=== PATIENT | male | born 1955 | race Caucasian/White ===

== ENCOUNTER → 2023-10-08 | Outpatient (CLI) | payer MEDICARE ==
--- NOTE | 2023-10-08 09:38 | MR ---
EXAMINATION TYPE: MR knee LT wo con DATE OF EXAM: 10/08/2023 COMPARISON: Outside radiograph 10/06/2023 HISTORY: 68-year-old male C1 8.8 Left knee pain. TECHNIQUE: Multiplanar, multisequence imaging of the left knee is performed without IV contrast. FINDINGS: ACL and PCL are intact. There is mild edema on either side of the intact MCL. Intrasubstance change in the femoral attachment of the LCL proper along with mass effect onto the mid portion from underlying complex multidirectional tear of the lateral meniscus and associated paramen iscal cysts measuring up to 2.7 cm x 1.5 cm craniocaudal. Remainder of the LCL complex appears intact. Small oblique undersurface tear at the junction of posterior horn and body of the medial meniscus. Mild superficial cartilage loss along the mid weightbearing aspect of medial and lateral femoral cond yles. More moderate irregular cartilage loss along the mid and medial trochlear facet. Minimal superficial irregularity of lateral patellar articular cartilage. Extensor mechanism is intact. There is a [id number] knee joint effusion and trace Cullen's cys t. Mild anterior subcutaneous soft tissue swelling. Normal popliteal artery anatomy and muscle bulk. No suspicious bone marrow replacement. IMPRESSION: 1. Complex multidirectional tearing extending throughout the entire lateral meniscus. Large paramenis tammy cyst laterally measuring up to 2.7 x 1.5 cm pushing on to the LCL proper. 2. Additional intrasubstance tear at the femoral attachment of the LCL proper. 3. Grade 1 MCL sprain. 4. Small oblique undersurface tear at the junction of the posterior horn and body of the medial menis cus. 5. Slight degenerative cartilage irregularity in the 3 compartments of the knee. More moderate irregu lar cartilage loss mid and medial trochlear cartilage.
== END | disposition home or self-care (01) ==
LOC: RADMRIMAIN 06:38
PROVIDERS: ATTEND Orthopaedic Surgery
DX: S83.412A Sprain of medial collateral ligament of left knee, initial encounter (principal); S83.242A Other tear of medial meniscus, current injury, left knee, initial encounter; M24.19 Other articular cartilage disorders, other specified site; S83.282A Other tear of lateral meniscus, current injury, left knee, initial encounter; M17.12 Unilateral primary osteoarthritis, left knee

== ENCOUNTER → 2023-10-18 | Outpatient (CLI) | payer MEDICARE ==
[2023-10-18 15:02] LABS: Basophils # (A) 0.05 X 10*3/uL (0.00-0.10); Basophils % (A) 0.5 %; Eosinophils % (A) 2.2 %; HCT 48.4 % (39.6-50.0); HGB 16.4 g/dL (13.0-17.0); Lymphocytes % (A) 20.7 %; MCHC 33.9 g/dL (32.0-37.0); MCV 88.5 FL (80.0-97.0); Mean Platelet Volume 9.7 FL (9.5-12.2); Monocytes # (A) 0.73 X 10*3/uL (0.20-1.00); Monocytes % (A) 7.9 %; NRBC Per 100 WBC 0 X 10*3/uL (0.00-0.01); Neutrophils # (A) 6.24 X 10*3/uL (1.80-7.70); Neutrophils % (A) 67.8 %; Platelet Count 280 X 10*3/uL (140-440); RBC 5.47 X 10*6/uL (4.40-5.60); RDW 12.1 % (11.5-14.5)
[2023-10-18 15:05] LABS: Anion Gap 11.1 mmol/L (4.00-12.00); Carbon Dioxide 24.9 mmol/L (21.6-31.8); Potassium 4.4 mmol/L (3.5-5.5)
== END | disposition home or self-care (01) ==
LOC: LABWHC1 07:56
PROVIDERS: ATTEND Orthopaedic Surgery
DX: Z01.818 Encounter for other preprocedural examination (principal); M23.92 Unspecified internal derangement of left knee; R94.31 Abnormal electrocardiogram [ECG] [EKG]
CPT/HCPCS: 36415; 80051; 85025; 93005

== ENCOUNTER 2023-10-28 08:43 | Day surgery (SDC) | payer MEDICARE ==
--- NOTE | 2023-10-27 21:04 | HP ---
HISTORY AND PHYSICAL DATE OF SURGERY: 10/28/2023. HISTORY OF PRESENT ILLNESS: Ramon Tracy is a 68-year-old gentleman, who was seen with progressive left knee pain. We discussed options regarding treatment. He elected to proceed with left knee arthroscopy. Consent was obtained. PAST MEDICAL HISTORY: Hypertension, gout. PAST SURGICAL HISTORY: Noncontributory. DAILY MEDICATIONS: Advil. ALLERGIES: None. SOCIAL HISTORY: Denies tobacco use. PHYSICAL EVALUATION OF THE LEFT KNEE: His range of motion is 0 to 130 degrees. Mild effusion. Tenderness along the medial and lateral joint lines. Positive medial Ravindra's. Positive lateral Ravindra's. Ligaments stable. Hip rotation without pain. Distal neurovascular exam is intact. IMAGING STUDIES: Left knee radiographs revealed mild osteoarthritis. Left knee MRI revealed medial and lateral meniscal tears. IMPRESSION: 1. Internal derangement of left knee with medial and lateral meniscal tears. 2. Hypertension. PLAN: Left knee arthroscopy with partial medial/lateral meniscectomy and debridement. MMODL / IJN: [id number] /
[~2023-10-28 08:43] MED LIST: DEXAMETHASONE SOD PHOSPHATE 4 MG/ML 1 ML VIAL IV ONE; HYDROmorphone 0.5 MG/0.5 ML SYRINGE IVP PRN; LACTATED RINGERS 1,000 ML IV SCH; LIDOCAINE 1% (10MG/ML) FOR IV START INTRADERMA PRN; ONDANSETRON 4 MG/2 ML VIAL IVP ONE; droPERidol 5 MG/2 ML VIAL IVP ONE
[2023-10-28] MEDS ORDERED: BUPIVACAINE (PF) 0.25% 30 ML VIAL SQ ONE ×2 (10:07→10:59)
[2023-10-28] MEDS ORDERED: fentaNYL (PF) 50 MCG/ML 2 ML AMP ONE (10:13)
[2023-10-28] MEDS ORDERED: PROPOFOL 10 MG/ML 20 ML VIAL IV ONE (10:13)
[2023-10-28] MEDS ORDERED: KETOROLAC 15 MG/ML 1 ML VIAL ONE (10:13)
[2023-10-28] MEDS ORDERED: LIDOCAINE 1% INJ 10MG/ML (20 ML MDV) ONE (10:13)
[2023-10-28] MEDS ORDERED: MIDAZOLAM 2 MG/2 ML VIAL ONE (10:13)
--- NOTE | 2023-10-28 11:14 | P.OP ---
Date of Procedure: 10/28/23 Preoperative Diagnosis: Internal derangement left knee Postoperative Diagnosis: 1. Tear medial and lateral meniscus left knee 2. Reactive synovitis medial, lateral and suprapatellar compartments left knee Procedure(s) Performed: 1. Arthroscopic partial medial and lateral meniscectomy left knee 2. Arthroscopic partial synovectomy medial, lateral and suprapatellar compartments left knee Anesthesia: GETA, local Surgeon: Irineo Ortiz Estimated Blood Loss (ml): 8 Pathology: none sent Condition: stable Disposition: PACU Indications for Procedure: 68-year-old gentleman seen with progressive left knee pain. After treatment options were discussed, he elected to proceed with arthroscopy. Operative Findings: See description of procedure Description of Procedure: Patient was taken to the operative suite. Patient underwent a general anesthetic by the department of anesthesia. Patient was given preoperative antibiotics. The left lower extremity was placed in a well-padded arthroscopic leg hunt. The left leg was prepped and draped in the normal sterile orthopedic fashion. A lateral parapatellar and suprapatellar incision was made. Trochars were inserted. Arthroscopy was initiated. Suprapatellar pouch rev ealed diffuse thick reactive synovitis. The patellofemoral joint appeared to articulate congruently. There was grade I/II chondromalacia of the patella without tears. The scope was guided into the medial gutter. No loose bodies or plica were identified. The scope was then guided into the medial compartment. A medial parapatellar incision was made. Trocar inserted followed by probe. There was a complex tear posterior horn medial meniscus. There were grade I/II chondromalacia changes medial compartment without tears. There was reactive synovitis anteriorly. I performed a partial medial meniscectomy getting down to stable meniscal tissue. I performed a partial synovectomy decompressing the reactive synovitis. The residual meniscus was stable. There was good decompression of the synovitis. Scope and probe were then guided into the intercondylar notch. Cruciates were identified, probed and found to be stable. The scope and probe were then guided into lateral compartment. There was a complex tear which was quite extensive involving the anterior horn, mid body and posterior horn the lateral meniscus. There were grade I chondromalacia changes lateral femoral condyle. There was thick reactive synovitis throughout the anterior aspect the lateral compartment. I now performed a partial lateral meniscectomy which was quite extensive. I performed a partial synovectomy decompressing the reactive synovitis. The partial lateral meniscectomy was essentially subtotal meniscectomy given the extensive tear. The very little residual meniscus that remained was stable. There was good decompression of the synovitis. The scope was in guided back into the suprapatellar compartment. I introduced a motorized shaver into the suprapatellar compartment. I debrided piecemeal fragments of meniscus I encountered. I performed a partial synovectomy. The shaver was now removed. There was good decompression of the synovitis. I took another look around the entire knee, no residual debris. Instruments were now removed from the joint. The joint was infiltrated with .25% Marcaine. Steri-Strips were applied to the portal sites. Sterile dressings were applied. The patient was placed into a LOVE hose. No tourniquet was utilized. The patient was awakened, transferred to a bed and taken to recovery stable satisfactory condition.
[2023-10-28 11:18] VITALS: TEMP 98
[2023-10-28 11:52] VITALS: RESP 16
[2023-10-28] MEDS: HYDROcodone/APAP 5-325MG 1 EACH TAB ONE ×2 (12:26→12:35)
[2023-10-28 13:02] VITALS: BP 164/93; PULSE 70
== END 2023-10-28 13:10 | disposition home or self-care (01) ==
LOC: OR 08:43
PROVIDERS: ATTEND Orthopaedic Surgery
DX: S83.282A Other tear of lateral meniscus, current injury, left knee, initial encounter (principal); M65.162 Other infective (teno)synovitis, left knee; I10 Essential (primary) hypertension; X58.XXXA Exposure to other specified factors, initial encounter
CPT/HCPCS: 29880; J2250; J1100; J0690; J2405; J2001; J3010; J1885; J2704; J0665

== ENCOUNTER 2024-06-20 21:38 | Emergency (ER) | payer MEDICARE ==
[2024-06-20 22:25] LABS: ALT 43 U/L (4-49); AST 34 U/L (17-59); African American GFR (CKD) >90 (>60 ml/min/1.73 sqM); Albumin 4.8 g/dL (3.5-5.0); Alkaline Phosphatase 94 U/L (38-126); Anion Gap 16 mmol/L; Blood Urea Nitrogen 17 mg/dL (9-20); Calcium 9.4 mg/dL (8.4-10.2); Carbon Dioxide 24 mmol/L (22-30); Chloride 96 mmol/L (98-107); Glucose 170 mg/dL (74-99); Non-African American GFR(CKD) >90 (>60 ml/min/1.73 sqM); Sodium 136 mmol/L (137-145); Total Bilirubin 1.1 mg/dL (0.2-1.3); Total Protein 7.6 g/dL (6.3-8.2)
[2024-06-20] MEDS: diphenhydrAMINE 50 MG/ML 1 ML VIAL IVP STA (22:33)
[2024-06-20] MEDS: SODIUM CHLORIDE 0.9% 2,000 ML IV ONE (22:33)
[2024-06-20] MEDS: PANTOPRAZOLE 40 MG/10 ML VIAL IVP STA (22:34)
[2024-06-20] MEDS: METOCLOPRAMIDE 5 MG/ML 2 ML VIAL IVP STA (22:34)
[2024-06-20 22:38] LABS: Basophils % (A) 0 %; Eosinophils # (A) 0.1 k/uL (0-0.7); Eosinophils % (A) 0 %; HCT 49.7 % (39.0-53.0); HGB 17.6 gm/dL (13.0-17.5); Lymphocytes # (A) 1.3 k/uL (1.0-4.8); Lymphocytes % (A) 11 %; MCHC 35.4 g/dL (31.0-37.0); MCV 87.7 fL (80.0-100.0); Mean Platelet Volume 7.5; Monocytes # (A) 0.5 k/uL (0-1.0); Monocytes % (A) 4 %; Neutrophils # (A) 10.6 k/uL (1.3-7.7); Neutrophils % (A) 84 %; Platelet Count 226 k/uL (150-450); RBC 5.67 m/uL (4.30-5.90); RDW 12.6 % (11.5-15.5); WBC 12.6 k/uL (3.8-10.6)
--- NOTE | 2024-06-20 22:53 | ED ---
General Adult HPI - General Chief complaint: Dizziness Stated complaint: Dizziness,Vomiting Time Seen by Provider: 06/20/24 21:56 Source: patient, RN notes reviewed Mode of arrival: wheelchair Limitations: no limitations - History of Present Illness Initial comments: 69-year-old male presents emergency department with chief complaint of lightheadedness. Patient states he took some caffeine supplement pill this morning states he took 2 tablets of it and this was the first time and shortly after he started having lightheadedness, near syncopal episodes, palpitations, dyspepsia. Patient states he has chronic GERD issues in which he takes Pepcid. Patient denies any chest pain denies any back pain denies any extremity weakness no headache he states symptoms are worse with movement. - Related Data Home Medications Medication Instructions Recorded Confirmed Losartan/Hydrochlorothiazide 1 tab PO DAILY 10/22/23 10/22/23 [Losartan-Hctz 100-25 mg Tab] Otc Zantac 1 tab PO DAILY PRN 10/22/23 10/22/23 Rosuvastatin Calcium 5 mg PO HS 10/22/23 10/22/23 Tamsulosin HCl [Flomax] 0.4 mg PO HS 10/22/23 10/22/23 Unk Tylenol 1 tab PO DIRECTED PRN 10/22/23 10/22/23 allopurinoL [Allopurinol] 100 mg PO DAILY 10/22/23 10/22/23 amLODIPine BESYLATE [Amlodipine 2.5 mg PO HS 10/22/23 10/22/23 Besylate] Previous Rx's Medication Instructions Recorded HYDROcodone/APAP 5-325MG [[place] 1 tab PO Q6HR PRN #12 tab 10/28/23 5-325] Allergies Allergy/AdvReac Type Severity Reaction Status Date / Time No Known Allergies Allergy Verified 06/20/24 21:40 Review of Systems ROS Statement: Those systems with pertinent positive or pertinent negative responses have been documented in the HPI. ROS Other: All systems not noted in ROS Statement are negative. Past Medical History Past Medical History: Hyperlipidemia, Hypertension History of Any Multi-Drug Resistant Organisms: None Reported Past Surgical History: Orthopedic Surgery Additional Past Surgical History / Comment(s): left knee Past Psychological History: No Psychological Hx Reported Smoking Status: Never smoker Past Alcohol Use History: Rare Past Drug Use History: None Reported General Exam Limitations: no limitations General appearance: alert, in no apparent distress Head exam: Present: atraumatic, normocephalic, normal inspection Eye exam: Present: normal appearance, PERRL, EOMI. Absent: scleral icterus, conjunctival injection, periorbital swelling ENT exam: Present: normal exam, normal oropharynx, mucous membranes moist Neck exam: Present: normal inspection, full ROM. Absent: tenderness, meningismus, lymphadenopathy Respiratory exam: Present: normal lung sounds bilaterally. Absent: respiratory distress, wheezes, rales, rhonchi, stridor Cardiovascular Exam: Present: normal rhythm, tachycardia, normal heart sounds. Absent: systolic murmur, diastolic murmur, rubs, gallop, clicks Extremities exam: Present: normal inspection, full ROM, normal capillary refill. Absent: tenderness, pedal edema, joint swelling, calf tenderness Neurological exam: Present: alert, oriented X3, CN II-XII intact, reflexes normal. Absent: motor sensory deficit Skin exam: Present: warm, dry, intact, normal color. Absent: rash Course Vital Signs 06/20/24 21:40 Temperature 98.0 F Pulse Rate 119 H Respiratory 24 Rate Blood Pressure 190/107 O2 Sat by Pulse 94 L Oximetry EKG Findings - EKG Comments: EKG Findings:: EKG performed at 21: 55 sinus rhythm rate of 96 MO 177 QRS 105 QT/QTc 373/427 - EKG Results: EKG: interpreted by JHONNY Medical Decision Making - Medical Decision Making Was pt. sent in by a medical professional or institution ([facility], LAB AID, urgent care, hospital, or fpc...) When possible be specific @ -No Did you speak to anyone other than the patient for history (EMS, parent, family, police, friend...)? What history was obtained from this source @ -No Did you review nursing and triage notes (agree or disagree)? Why? @ -I reviewed and agree with nursing and triage notes Were old charts reviewed (outside hosp., previous admission, EMS record, old E KG, old radiological studies, urgent care reports/EKG's, fpc records)? Report findings @ -No old charts were reviewed Differential Diagnosis (chest pain, altered mental status, abdominal pain women, abdominal pain men, vaginal bleeding, weakness, fever, dyspnea, syncope, headache, dizziness, GI bleed, back pain, seizure, CVA, palpatations, mental health, musculoskeletal)? @ -Medication reaction, differential Syncope: Valvular disease, hypertrophic cardiomyopathy, pulmonary embolism, tamponade, tachycardia, bradycardia, SD, hypovolemia, hemorrhage, dissection, anemia, intracranial hemorrhage, seizure, hypoglycemia, carbon monoxide poisoning, this is not meant to be an all-inclusive list. Differential Dizziness: Benign paroxysmal positional Vertigo, Meniere's disease, otitis media, acoustic neuroma, vertebrobasilar insufficiency, cerebellar stroke, encephalitis, hypovolemic, arrhythmia, coronary artery syndrome, anemia, this is not meant to be an all-inclusive list EKG interpreted by me (3pts min.). @ -As above X-rays interpreted by me (1pt min.). @ -None done CT interpreted by me (1pt min.). @ -None done U/S interpreted by me (1pt. min.). @ -None done What testing was considered but not performed or refused? (CT, X-rays, U/S, labs)? Why? @ -None What meds were considered but not given or refused? Why? @ -None Did you discuss the management of the patient with other professionals (professionals i.e. , PA, LAB AID, lab, RT, psych nurse, social work therapist, family court counsellor, teacher, custodial officer, casework supervisor)? Give summary @ -No Was smoking cessation discussed for >3mins.? @ -No Was critical care preformed (if so, how long)? @ -No Were there social determinants of health that impacted care today? How? (Homelessness, low income, unemployed, alcoholism, drug addiction, transpo rtation, low edu. Level, literacy, decrease access to med. care, [facility] [facility], rehab)? @ -No Was there de-escalation of care discussed even if they declined (Discuss DNR or withdrawal of care, Hospice)? DNR status @ -No What co-morbidities impacted this encounter? (DM, HTN, Smoking, COPD, CAD, Cancer, CVA, ARF, Chemo, Hep., AIDS, mental health diagnosis, sleep apnea, morbid obesity)? @ -None Was patient admitted / discharged? Hospital course, mention meds given and route, prescriptions, significant lab abnormalities, going to OR and other pertinent info. @ -Discharge patient feels great improved after fluids, antibiotics. Patient we discharged in stable condition patient's potassium was replaced. Patient will follow-up PCP tomorrow return for as discussed. Undiagnosed new problem with uncertain prognosis? @ -No Drug Therapy requiring intensive monitoring for toxicity (Heparin, Nitro, Insulin, Cardizem)? @ -No Were any procedures done? @ -No Diagnosis/symptom? @ -Medication reaction, lightheadedness Acute, or Chronic, or Acute on Chronic? @ -Acute Uncomplicated (without systemic symptoms) or Complicated (systemic symptoms)? @ -Complicated Side effects of treatment? @ -No Exacerbation, Progression, or Severe Exacerbation? @ -No Poses a threat to life or bodily function? How? (Chest pain, USA, SD, pneumonia, PE, COPD, DKA, ARF, appy, cholecystitis, CVA, Diverticulitis, Homicidal, Suicid al, threat to staff... and all critical care pts) @ -No - Lab Data Result diagrams: 06/20/24 22:08 06/20/24 22:08 Lab Results 06/20/24 06/20/24 06/20/24 Range/Units 22:08 22:08 22:08 WBC 12.6 H (3.8-10.6) k/uL RBC 5.67 (4.30-5.90) m/uL Hgb 17.6 H (13.0-17.5) gm/dL Hct 49.7 (39.0-53.0) % MCV 87.7 (80.0-100.0) fL MCH 31.0 (25.0-35.0) pg MCHC 35.4 (31.0-37.0) g/dL RDW 12.6 (11.5-15.5) % Plt Count 226 (150-450) k/uL MPV 7.5 Neutrophils % 84 % Lymphocytes % 11 % Monocytes % 4 % Eosinophils % 0 % Basophils % 0 % Neutrophils # 10.6 H (1.3-7.7) k/uL Lymphocytes # 1.3 (1.0-4.8) k/uL Monocytes # 0.5 (0-1.0) k/uL Eosinophils # 0.1 (0-0.7) k/uL Basophils # 0.0 (0-0.2) k/uL Sodium 136 L (137-145) mmol/L Potassium 3.0 L (3.5-5.1) mmol/L Chloride 96 L (98-107) mmol/L Carbon Dioxide 24 (22-30) mmol/L Anion Gap 16 mmol/L BUN 17 (9-20) mg/dL Creatinine 0.80 (0.66-1.25) mg/dL Est GFR (CKD-EPI)AfAm >90 (>60 ml/min/1.73 sqM) Est GFR (CKD-EPI)NonAf >90 (>60 ml/min/1.73 sqM) Glucose 170 H (74-99) mg/dL Plasma Lactic Acid Davi (0.7-2.0) mmol/L Calcium 9.4 (8.4-10.2) mg/dL Magnesium (1.6-2.3) mg/dL Total Bilirubin 1.1 (0.2-1.3) mg/dL AST 34 (17-59) U/L ALT 43 (4-49) U/L Alkaline Phosphatase 94 (38-126) U/L Troponin I <0.012 (0.000-0.034) ng/mL Total Protein 7.6 (6.3-8.2) g/dL Albumin 4.8 (3.5-5.0) g/dL 06/20/24 06/20/24 Range/Units 22:08 22:56 WBC (3.8-10.6) k/uL RBC (4.30-5.90) m/uL Hgb (13.0-17.5) gm/dL Hct (39.0-53.0) % MCV (80.0-100.0) fL MCH (25.0-35.0) pg MCHC (31.0-37.0) g/dL RDW (11.5-15.5) % Plt Count (150-450) k/uL MPV Neutrophils % % Lymphocytes % % Monocytes % % Eosinophils % % Basophils % % Neutrophils # (1.3-7.7) k/uL Lymphocytes # (1.0-4.8) k/uL Monocytes # (0-1.0) k/uL Eosinophils # (0-0.7) k/uL Basophils # (0-0.2) k/uL Sodium (137-145) mmol/L Potassium (3.5-5.1) mmol/L Chloride (98-107) mmol/L Carbon Dioxide (22-30) mmol/L Anion Gap mmol/L BUN (9-20) mg/dL Creatinine (0.66-1.25) mg/dL Est GFR (CKD-EPI)AfAm (>60 ml/min/1.73 sqM) Est GFR (CKD-EPI)NonAf (>60 ml/min/1.73 sqM) Glucose (74-99) mg/dL Plasma Lactic Acid Davi 2.8 H* (0.7-2.0) mmol/L Calcium (8.4-10.2) mg/dL Magnesium 1.6 (1.6-2.3) mg/dL Total Bilirubin (0.2-1.3) mg/dL AST (17-59) U/L ALT (4-49) U/L Alkaline Phosphatase (38-126) U/L Troponin I (0.000-0.034) ng/mL Total Protein (6.3-8.2) g/dL Albumin (3.5-5.0) g/dL Disposition Clinical Impression: Medication reaction, Lightheaded Disposition: HOME SELF-CARE Condition: Stable Instructions (If sedation given, give patient instructions): Dizziness (ED) Additional Instructions: Please return to the Emergency Department if symptoms worsen or any other concerns. Is patient prescribed a controlled substance at d/c from ED?: No Referrals: Sushant Dawn MD [Primary Care Provider] - 1-2 days Time of Disposition: 00:21
[2024-06-21] MEDS: POTASSIUM CHLORIDE ER 20 MEQ TAB.ER PO STA (00:13)
[2024-06-21 00:38] VITALS: BP 148/90; PULSE 76; RESP 18; TEMP 98.7
== END 2024-06-21 00:38 | disposition home or self-care (01) ==
LOC: EC 21:38
CPT/HCPCS: 36415; 80053; 83605; 83735; 84484; 85025; 93005; 96361; 96374; 96375; 99284